=== PATIENT | female | born 1980 | race Caucasian/White ===

== ENCOUNTER 2018-01-20 17:47 | Emergency (ER) | payer SELFPAY ==
--- NOTE | 2018-01-20 17:57 | ER Report ---
History and Physical Time Seen By MD: 17:57 HPI/ROS CHIEF COMPLAINT: possible urinary tract infection or yeast infection HISTORY OF PRESENT ILLNESS: This is a 37 year old female. She is having difficulty with urination, progressing over several days. Some pain in the right flank extending around the side. She has had kidneystones in the past, but does not feel like that yet. She is having some urinary urgency and frequency, but no real pain when urinating. No fevers or chills. No shortness of breath or cough. Normal bowels. Allergies: Coded Allergies: No Known Drug Allergies (Unverified , 01/20/18) Home Meds Active Scripts Promethazine Hcl (PROMETHAZINE HCL) 25 Mg Tablet, 25 MG PO Q8H Y for NAUSEA/ VOMITING, #20 TAB 0 Refills Prov:ANTONI GONZALEZ MD 01/20/18 Amoxicillin (AMOXICILLIN) 500 Mg Capsule, 1 CAP PO Q8H, #15 CAPSULE 0 Refills Prov:ANTONI GONZALEZ MD 01/20/18 Reviewed Nurses Notes: Yes Constitutional Vital Sign - Last 24 Hours 01/20/18 17:57 Temp 98.1 Pulse 104 Resp 18 B/P (MAP) 157/94 Pulse Ox 96 O2 Delivery Room Air Physical Exam General Appearance: Alert, no acute distress. Respiratory: Chest is non tender, lungs are clear to auscultation. Cardiac: regular rate and rhythm Gastrointestinal: Abdomen is soft, tender in right side, mainly lower. Right CVA tenderness. Musculoskeletal: Extremities have full range of motion. No pain over spine area. Skin: No rashes or lesions. DIFFERENTIAL DIAGNOSIS: After history and physical exam differential diagnosis was considered for symptoms of urinary tract infection versus kidney stone. Medical Decision Making Data Points Laboratory Hematology Test 01/20/18 17:53 Urine Color Straw Urine Clarity Clear Urine pH 6.0 pH (4.8-9.5) Urine Specific [place] 1.010 Urine Protein Negative mg/dL (NEGATIVE) Urine Glucose (UA) Negative mg/dL (NEGATIVE) Urine Ketones Negative mg/dL (NEGATIVE) Urine Blood Moderate (NEGATIVE) Urine Nitrite Negative (NEGATIVE) Urine Bilirubin Negative (NEGATIVE) Urine Urobilinogen Negative mg/dL (0.2-1.9) Urine Leukocyte Esterase Small (NEGATIVE) Urine RBC 17 /HPF (0-2/HPF) Urine WBC 13 /HPF (0-5/HPF) Urine Squamous Epithelial Cells Many /LPF (</=FEW) Urine Transitional Epithelial Cells Few /LPF (NONE-FEW) Urine Bacteria Negative /HPF (NONE-FEW) Urine Mucus None /HPF (NONE-FEW) Chemistry Test 01/20/18 17:53 Urine Color Straw Urine Clarity Clear Urine pH 6.0 pH (4.8-9.5) Urine Specific [place] 1.010 Urine Protein Negative mg/dL (NEGATIVE) Urine Glucose (UA) Negative mg/dL (NEGATIVE) Urine Ketones Negative mg/dL (NEGATIVE) Urine Blood Moderate (NEGATIVE) Urine Nitrite Negative (NEGATIVE) Urine Bilirubin Negative (NEGATIVE) Urine Urobilinogen Negative mg/dL (0.2-1.9) Urine Leukocyte Esterase Small (NEGATIVE) Urine RBC 17 /HPF (0-2/HPF) Urine WBC 13 /HPF (0-5/HPF) Urine Squamous Epithelial Cells Many /LPF (</=FEW) Urine Transitional Epithelial Cells Few /LPF (NONE-FEW) Urine Bacteria Negative /HPF (NONE-FEW) Urine Mucus None /HPF (NONE-FEW) Urinalysis Test 01/20/18 17:53 Urine Color Straw Urine Clarity Clear Urine pH 6.0 pH (4.8-9.5) Urine Specific [place] 1.010 Urine Protein Negative mg/dL (NEGATIVE) Urine Glucose (UA) Negative mg/dL (NEGATIVE) Urine Ketones Negative mg/dL (NEGATIVE) Urine Blood Moderate (NEGATIVE) Urine Nitrite Negative (NEGATIVE) Urine Bilirubin Negative (NEGATIVE) Urine Urobilinogen Negative mg/dL (0.2-1.9) Urine Leukocyte Esterase Small (NEGATIVE) Urine RBC 17 /HPF (0-2/HPF) Urine WBC 13 /HPF (0-5/HPF) Urine Squamous Epithelial Cells Many /LPF (</=FEW) Urine Transitional Epithelial Cells Few /LPF (NONE-FEW) Urine Bacteria Negative /HPF (NONE-FEW) Urine Mucus None /HPF (NONE-FEW) ED Course/Re-evaluation ED Course Based on symptoms, started with just a urinalysis. This was positive, but could still represent infection versus kidney stone. I favor this being a stone at this time. We discussed further management and after discussing, we will not do imaging or blood work. She will use Tylenol and Ibuprofen for pain. Phenergan for nausea. And then will start Amoxicillin, urine culture and a dose of Diflucan to prevent yeast infection. She will return if not improving and we can do more of a workup at that time as needed. Decision to Disposition Date: Jan 20, 2018 Decision to Disposition Time: 19:00 Depart Departure Latest Vital Signs Vital Signs Date Time Temp Pulse Resp B/P (MAP) Pulse Ox O2 Delivery O2 Flow Rate FiO2 01/20/18 17:57 98.1 104 18 157/94 96 Room Air Impression: Primary Impression: Urinary tract infection Condition: Improved Disposition: HOME OR SELF-CARE New Scripts Promethazine Hcl (PROMETHAZINE HCL) 25 Mg Tablet 25 MG PO Q8H Y for NAUSEA/VOMITING, #20 TAB 0 Refills Prov: ANTONI GONZALEZ MD 01/20/18 Amoxicillin (AMOXICILLIN) 500 Mg Capsule 1 CAP PO Q8H, #15 CAPSULE 0 Refills Prov: ANTONI GONZALEZ MD 01/20/18 Patient Instructions: Urinary Tract Infection in Women (ED) Additional Instructions: Your urine shows changes that could represent urinary infection, but cannot rule out a kidney stone. Take Tylenol and Ibuprofen as needed for pain. If you have nausea/vomiting, take phenergan 25mg tablet every 6 hours as needed for nausea. Take the antibiotic Amoxicillin 500mg three times a day for 5 days. Urine culture is being done and should be available in the next 48 to 72 hours. Problem Qualifiers Primary Impression: Urinary tract infection Urinary tract infection type: acute cystitis Hematuria presence: with hematuria Qualified Codes: N30.01 - Acute cystitis with hematuria ANTONI GONZALEZ MD Jan 20, 2018 17:57
[2018-01-20 19:00] VITALS: BP 135/80
[2018-01-20] MEDS ORDERED: PROMETHAZINE HCL 25 MG TAB TH 2 TAB/BOTTLE PO ONE (19:00)
[2018-01-20] MEDS ORDERED: AMOXICILLIN 500 MG CAP PO ONE (19:00)
[2018-01-20] MEDS ORDERED: FLUCONAZOLE 150 MG TAB PO ONE (19:00)
[2018-01-20] MEDS ORDERED: PROM-110 PO (19:04)
[2018-01-20] MEDS ORDERED: AMOX-362 PO (19:04)
== END 2018-01-20 19:10 | disposition home or self-care (01) ==
LOC: ER 17:50
DX: N39.0 Urinary tract infection, site not specified (principal); B96.20 Unspecified Escherichia coli [E. coli] as the cause of diseases classified elsewhere
CPT/HCPCS: 81001; 87077; 87088; 87186; 99283

== ENCOUNTER → 2018-02-19 | Outpatient (CLI) | payer SELFPAY ==
[~2018-02-19] MED LIST: AMOX-362 PO; CLIN300C99 PO; HYDR-385 PO; PROM-110 PO; SULF-198 PO
== END ==
LOC: LAB 12:05
PROVIDERS: ATTEND Nurse Practitioner Primary Care
DX: L03.113 Cellulitis of right upper limb (principal)
CPT/HCPCS: 87070

== ENCOUNTER 2018-04-16 11:40 | Emergency (ER) | payer SELFPAY ==
--- NOTE | 2018-04-16 11:48 | ER Report ---
History and Physical Time Seen By MD: 11:47 Hx. of Stated Complaint: Fever, sore throat body aches HPI/ROS Patient is a 37-year-old female ambulatory to the emergency room has been ill 3 days stated she started having a scratchy throat body aches fever her son has similar symptoms chief complaint right now is a sore throat Remainder of the 14 system rev: Yes Allergies: Coded Allergies: No Known Drug Allergies (Unverified , 01/20/18) Home Meds Active Scripts Sulfamethoxazole/Trimet 800-160 Mg Tab (BACTRIM DS TABLET) 1 Each Tablet, 1 TAB PO BID for 10 Days, #20 TAB 0 Refills Prov:GORDO RAND DNP, [facility]- 02/19/18 Hydrocodone Bit/Acetaminophen (HYDROCODON-ACETAMINOPHEN 5-325) 1 Each Tablet, 1 EACH PO Q4-6H PRN for PAIN, #15 TAB 0 Refills Prov:GORDO RAND DNP, [facility] 02/19/18 Past Medical/Surgical History Migraine headaches, chronic pain Smoking Status: Current: Every Day Smoker Constitutional Vital Sign - Last 24 Hours 04/16/18 04/16/18 11:47 12:51 Temp 97.3 Pulse 91 97 Resp 24 B/P (MAP) 135/74 111/77 (88) Pulse Ox 97 95 O2 Delivery Room Air Room Air Physical Exam 37-year-old female alert oriented mild distress HEENT has normocephalic atraumatic tympanic membranes are non-reddened throat is erythematous noncoated no lymphadenopathy heart rate regular no murmurs rubs and gallops lungs clear to auscultation abdomen is soft moves all extremities Medical Decision Making Data Points Laboratory Hematology Test 04/16/18 11:57 Influenza Virus Type A (PCR) Negative (NEGATIVE) Influenza Virus Type B (PCR) Negative (NEGATIVE) Group A Streptococcus Screen Negative (NEGATIVE) Chemistry Test 04/16/18 11:57 Influenza Virus Type A (PCR) Negative (NEGATIVE) Influenza Virus Type B (PCR) Negative (NEGATIVE) Group A Streptococcus Screen Negative (NEGATIVE) ED Course/Re-evaluation ED Course Influenza swab and rapid strep are both negative by did talk to the patient this is a probable viral illness she sent home with symptomatic treatment with instructions to return to the emergency room if she becomes more ill or has any problems or concerns she was given the number for a primary care physician to follow-up with Re-evaluation No acute distress on it dismissal afebrile Decision to Disposition Date: Apr 16, 2018 Decision to Disposition Time: 12:52 Depart Departure Latest Vital Signs Vital Signs Date Time Temp Pulse Resp B/P (MAP) Pulse Ox O2 Delivery O2 Flow Rate FiO2 04/16/18 12:51 97 111/77 (88) 95 Room Air 04/16/18 11:47 97.3 24 Impression: Primary Impression: Viral syndrome Condition: Improved Disposition: HOME OR SELF-CARE Referrals: BALBIR RODRIGUEZ DO 1 Week Patient Instructions: Viral Syndrome (ED) ENRRIQUE FLANAGAN Apr 16, 2018 11:48
[2018-04-16 12:51] VITALS: BP 111/77
== END 2018-04-16 12:57 | disposition home or self-care (01) ==
LOC: ER 12:25
DX: B34.9 Viral infection, unspecified (principal)
CPT/HCPCS: 87081; 87502; 87880; 99282

== ENCOUNTER 2018-04-23 00:06 | Emergency (ER) | payer SELFPAY ==
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
[2018-04-23] MEDS ORDERED: ONDANSETRON 4 MG/2 ML VIAL IVP ONE (00:25)
[2018-04-23] MEDS ORDERED: IOPAMIDOL 76% 75 ML INFUS BTL 75 ML ONE (00:40)
[2018-04-23] MEDS ORDERED: NS(*) 0.9% 50 ML BAG 50 ML ONE (00:40)
[2018-04-23] MEDS: fentaNYL CITR 100 MCG/2 ML AMP IVP PRN ×2 (00:42→02:02)
[2018-04-23 01:00] VITALS: BP 125/73
[2018-04-23] MEDS ORDERED: fentaNYL CITR 100 MCG/2 ML AMP IVP PRN (01:55)
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
[2018-04-23] MEDS ORDERED: KETOROLAC 30 MG/ML VIAL IVP ONE (02:30)
[2018-04-23] MEDS ORDERED: LOR5/325 PO (02:38)
[2018-04-23] MEDS ORDERED: TIZA-128 PO (02:38)
[2018-04-23] MEDS ORDERED: ACET/HYDROC 5/325MG TH ER ONLY 2 TAB/BOTTLE PO ONE (02:45)
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
== END 2018-04-23 02:54 | disposition home or self-care (01) ==
LOC: SANE 00:18
DX: R51 Headache (principal); S09.90XA Unspecified injury of head, initial encounter; S10.93XA Contusion of unspecified part of neck, initial encounter; T71.9XXA Asphyxiation due to unspecified cause, initial encounter; Y04.8XXA Assault by other bodily force, initial encounter
CPT/HCPCS: 70450; 70498; 84703; 96374; 96375; 99284; J1885; J2405; J3010; J7050; Q9967

== ENCOUNTER 2018-08-24 15:24 | Emergency (ER) | payer MEDICAID ==
[~2018-08-24 15:24] MED LIST changes: +LOR5/325 PO; +TIZA-128 PO
--- NOTE | 2018-08-24 15:32 | ER Report ---
History and Physical Time Seen By MD: 15:31 HPI/ROS CHIEF COMPLAINT: sorethroat, ear ache, nasal congestion HISTORY OF PRESENT ILLNESS: Pt states that she started two days ago with nasal congestion, left ear pain, occasional cough, headache and bodyaches. Pt states that her 1 year old has similar symptoms. Pt did not get a flu shot. No n/v/d. Pt using tylenol and motrin for symptoms. REVIEW OF SYSTEMS: Constitutional: No fever, no chills. Eyes: No discharge. ENT: + sore throat. + left ear pain Cardiovascular: No chest pain, no palpitations. Respiratory: No cough, no shortness of breath. Gastrointestinal: No abdominal pain, no vomiting. Genitourinary: No hematuria. Musculoskeletal: No back pain. Skin: No rashes. Neurological: + headache. Allergies: Coded Allergies: No Known Drug Allergies (Unverified , 01/20/18) Home Meds Active Scripts Tizanidine Hcl (TIZANIDINE HCL) 4 Mg Tablet, 4 MG PO TID PRN for muscle spasm relief, #15 Prov:MARBINSRIRAM DO 04/23/18 Hydrocodone Bit/Acetaminophen (HYDROCODON-ACETAMINOPHEN 5-325) 1 Each Tablet, 1 EACH PO Q4-6H for PAIN, #12 TAKE ONE TABLET BY MOUTH EVERY 4-6 HOURS NEEDED FOR PAIN Prov:MARBINSRIRAM M DO 04/23/18 Sulfamethoxazole/Trimet 800-160 Mg Tab (BACTRIM DS TABLET) 1 Each Tablet, 1 TAB PO BID for 10 Days, #20 TAB 0 Refills Prov:GORDO RAND DNP, FNP-BC 02/19/18 Hydrocodone Bit/Acetaminophen (HYDROCODON-ACETAMINOPHEN 5-325) 1 Each Tablet, 1 EACH PO Q4-6H PRN for PAIN, #15 TAB 0 Refills Prov:GORDO RAND DNP, FNP-BC 02/19/18 Past Medical/Surgical History Pmhx: Pseudotumor cerebri Reviewed Nurses Notes: Yes Hx Smoking: Yes Smoking Status: Current: Every Day Smoker Hx Alcohol Use: No Constitutional Vital Sign - Last 24 Hours 08/24/18 15:35 Temp 97.9 Pulse 95 Resp 16 B/P (MAP) 146/88 Pulse Ox 93 O2 Delivery Room Air Physical Exam General Appearance: The patient is alert, has no immediate need for airway protection and no signs of toxicity. Eyes: Pupils equal and round no pallor or injection, EOMI ENT: + pharyngeal erythema but no exudates, Mucous membranes are moist, TM are nl b/l Respiratory: There are no retractions, lungs are clear to auscultation. Cardiovascular: Regular rate and rhythm. pulses are equal and symmetrical Gastrointestinal: Abdomen is soft and non tender, no masses, bowel sounds normal, no guarding, no rigidity or rebound Neurological: Cranial nerves II-XII grossly intact, no sensory or motor loss Skin: Warm and dry, no rashes. Musculoskeletal: Neck is supple non tender, no vertebral tenderness Extremities are nontender, non swollen and have full range of motion. DIFFERENTIAL DIAGNOSIS: After history and physical exam differential diagnosis was considered for influenza, viral uri, sinusitis, strep Medical Decision Making Data Points Laboratory Hematology Test 08/24/18 00:00 08/24/18 15:45 Influenza Virus Type A (PCR) Negative (NEGATIVE) Influenza Virus Type B (PCR) Negative (NEGATIVE) Group A Streptococcus (PCR) Negative (NEGATIVE) Urine HCG, Qualitative Negative (NEGATIVE) Chemistry Test 08/24/18 00:00 08/24/18 15:45 Influenza Virus Type A (PCR) Negative (NEGATIVE) Influenza Virus Type B (PCR) Negative (NEGATIVE) Group A Streptococcus (PCR) Negative (NEGATIVE) Urine HCG, Qualitative Negative (NEGATIVE) Urinalysis Test 08/24/18 15:45 Urine HCG, Qualitative Negative (NEGATIVE) ED Course/Re-evaluation ED Course check flu and strep 08/24/2018 4:17:45 pm PT states she got relief from her congestion and ear discomfort with the neosynephrine nasal spray. Still with headache. will give pt motrin. PT 08/24/2018 4:31:26 pm Pts strep and influenza are neg Decision to Disposition Date: Aug 24, 2018 Decision to Disposition Time: 16:31 Depart Departure Latest Vital Signs Vital Signs Date Time Temp Pulse Resp B/P (MAP) Pulse Ox O2 Delivery O2 Flow Rate FiO2 08/24/18 15:35 97.9 95 16 146/88 93 Room Air Impression: Primary Impression: Upper respiratory infection Condition: Improved Disposition: HOME OR SELF-CARE Patient Instructions: Eustachian Tube Dysfunction (GEN), Upper Respiratory Infection (ED) Additional Instructions: Your influenza and strep were negative. Motrin/tylenol as needed for bodyaches and headache. You may use the nasal spray that we supplied every 6 hours as needed for the next 2 days. Benadryl 25mg every 6 hours will also help with your congestion and blocked ear duct. Follow up as needed. Problem Qualifiers Primary Impression: Upper respiratory infection URI type: unspecified viral URI Qualified Codes: J06.9 - Acute upper respiratory infection, unspecified ALEXEI SNEED DO Aug 24, 2018 15:32
[2018-08-24] MEDS ORDERED: PHENYLEPHRINE 0.5% 15 ML BTL ONE (15:50)
[2018-08-24] MEDS ORDERED: IBUPROFEN 600 MG TAB PO ONE (16:20)
[2018-08-24 16:32] VITALS: BP 132/84
== END 2018-08-24 16:36 | disposition home or self-care (01) ==
LOC: ER 15:34
DX: J06.9 Acute upper respiratory infection, unspecified (principal)
CPT/HCPCS: 81025; 87502; 87653; 99283

== ENCOUNTER 2018-09-29 17:05 | Emergency (ER) | payer MEDICAID ==
--- NOTE | 2018-09-29 17:18 | ER Report ---
History and Physical Time Seen By MD: 17:18 Hx. of Stated Complaint: SICK FOR 3 DAYS WITH COUGH, CONGESTION AND FEVER HPI/ROS CHIEF COMPLAINT: Cough, congestion, fever HISTORY OF PRESENT ILLNESS: Patient is a 38 year old female presenting to the ED with complaints of cough, congestion, and fever. Started 3 days ago with nasal congestion. Then her left ear started to hurt. Yesterday in the morning patient had a fever. Highest fever was 101.3. Patient now has a cough with productive, yellow sputum. Patient complains of shortness of breath. Patient has also been nauseated with one episode of vomiting yesterday. Patient also has right upper quadrant pain for 1.5 weeks. States the pain is worse with eating. Lasts for approximately one hour. REVIEW OF SYSTEMS: Respiratory: See HPI Cardiovascular: No chest pain, no palpitations. Gastrointestinal: see HPI. Musculoskeletal: No back pain. Allergies: Coded Allergies: No Known Drug Allergies (Unverified , 01/20/18) Home Meds Active Scripts Pantoprazole Sodium (PANTOPRAZOLE SODIUM) 40 Mg Tablet.dr, 40 MG PO QDAY, #30 TAB.SR Prov:KIRSTEN WATSON [facility] 09/29/18 Prednisone (PREDNISONE) 20 Mg Tablet, 40 MG PO DAILY, #10 TAB Prov:KIRSTEN WATSON [employer] 09/29/18 Promethazine HCl/Codeine (Prometh-Codein 6.25-10 mg/5 ml) 5 Ml Syrup, 1 TSP PO QHS PRN for COUGH, #35 ML Prov:KIRSTEN WATSON [facility] 09/29/18 Amoxicillin/Pot Clav 875-125 Mg Tab (AUGMENTIN 875-125 TABLET) 1 Each Tablet, 1 TAB PO Q12H, #13 TAB Prov:KIRSTEN WATSON [facility] 09/29/18 Hydrocodone Bit/Acetaminophen (HYDROCODON-ACETAMINOPHEN 5-325) 1 Each Tablet, 1 EACH PO Q4-6H for PAIN, #12 TAKE ONE TABLET BY MOUTH EVERY 4-6 HOURS NEEDED FOR PAIN Prov:SRIRAM ZAZUETA DO 04/23/18 Discontinued Scripts Tizanidine Hcl (TIZANIDINE HCL) 4 Mg Tablet, 4 MG PO TID PRN for muscle spasm relief, #15 Prov:SRIRAM ZAZUETA DO 04/23/18 Sulfamethoxazole/Trimet 800-160 Mg Tab (BACTRIM DS TABLET) 1 Each Tablet, 1 TAB PO BID for 10 Days, #20 TAB 0 Refills Prov:GORDO RAND DNP, [employer] [facility] 02/19/18 Hydrocodone Bit/Acetaminophen (HYDROCODON-ACETAMINOPHEN 5-325) 1 Each Tablet, 1 EACH PO Q4-6H PRN for PAIN, #15 TAB 0 Refills Prov:GORDO RAND DNP, [facility]- 02/19/18 Past Medical/Surgical History Patient has a past medical history of kidney stones. Patient denies any surgeries. Reviewed Nurses Notes: Yes Hx Smoking: Yes Smoking Status: Current: Every Day Smoker Hx Alcohol Use: No Constitutional Vital Sign - Last 24 Hours 09/29/18 09/29/18 17:08 19:53 Temp 98.1 Pulse 102 85 Resp 20 16 B/P (MAP) 141/83 138/82 (100) Pulse Ox 96 93 O2 Delivery Room Air Room Air Physical Exam General Appearance: The patient is alert, has no immediate need for airway protection and no current signs of toxicity. Eyes: Pupils equal and round no injection. Ears: TMs were dull and bulging bilaterally. Nose: Canals erythemic with swollen turbinates. Respiratory: Chest is non tender, lungs are clear to auscultation. Cardiac: regular rate and rhythm Gastrointestinal: Abdomen is soft, no masses, bowel sounds normal. Right upper quadrant tenderness to palpitation noted Musculoskeletal: Neck: Neck is supple and non tender. Submandibular lym phadenopathy noted. Extremities have full range of motion and are non tender. Skin: No rashes or lesions. DIFFERENTIAL DIAGNOSIS: After history and physical exam differential diagnosis was considered for sinusitis, upper respiratory infection, gallstones, ulcer. Medical Decision Making Data Points Result Diagram: 09/29/18 1755 09/29/18 175 Laboratory Hematology Test 09/29/18 17:14 09/29/18 17:55 09/29/18 18:07 Influenza Virus Type A (PCR) Negative (NEGATIVE) Influenza Virus Type B (PCR) Negative (NEGATIVE) Red Blood Count 4.82 M/uL (4.17-5.56) Mean Corpuscular Volume 89.3 fL (80.0-96.0) Mean Corpuscular Hemoglobin 30.8 pg (26.0-33.0) Mean Corpuscular Hemoglobin Concent 34.5 g/dL (32.0-36.0) Red Cell Distribution Width 14.6 % (11.5-14.5) Mean Platelet Volume 9.7 fL (7.2-11.1) Neutrophils (%) (Auto) 60.3 % (39.4-72.5) Lymphocytes (%) (Auto) 27.3 % (17.6-49.6) Monocytes (%) (Auto) 9.0 % (4.1-12.4) Eosinophils (%) (Auto) 2.7 % (0.4-6.7) Basophils (%) (Auto) 0.7 % (0.3-1.4) Nucleated RBC Relative Count (auto) 0.0 /100WBC Neutrophils # (Auto) 3.8 K/uL (2.0-7.4) Lymphocytes # (Auto) 1.7 K/uL (1.3-3.6) Monocytes # (Auto) 0.6 K/uL (0.3-1.0) Eosinophils # (Auto) 0.2 K/uL (0.0-0.5) Basophils # (Auto) 0.0 K/uL (0.0-0.1) Nucleated RBC Absolute Count (auto) 0.00 K/uL Sodium Level 140 mmol/L (137-145) Potassium Level 3.5 mmol/L (3.5-5.0) Chloride Level 109 mmol/L (98-107) Carbon Dioxide Level 21 mmol/L (22-31) Blood Urea Nitrogen 9 mg/dl (7-18) Creatinine 0.80 mg/dl (0.52-1.04) Glomerular Filtration Rate Calc > 60.0 Random Glucose 114 mg/dl (75-110) Calcium Level 8.8 mg/dl (8.4-10.2) Total Bilirubin < 0.1 mg/dl (0.2-1.3) Aspartate Amino Transf (AST/SGOT) 27 U/L (0-35) Alanine Aminotransferase (ALT/SGPT) 18 U/L (0-56) Alkaline Phosphatase 61 U/L (0-126) Total Protein 7.1 g/dl (6.3-8.2) Albumin 4.2 g/dl (3.5-5.0) Amylase Level 86 U/L (0-110) Lipase 125 U/L (23-300) Helicobacter pylori IgG Antibody Negative (NEGATIVE) Urine Color Straw Urine Clarity Clear Urine pH 5.0 pH (4.8-9.5) Urine Specific Bentley 1.016 Urine Protein Negative mg/dL (NEGATIVE) Urine Glucose (UA) Negative mg/dL (NEGATIVE) Urine Ketones Negative mg/dL (NEGATIVE) Urine Blood Small (NEGATIVE) Urine Nitrite Negative (NEGATIVE) Urine Bilirubin Negative (NEGATIVE) Urine Urobilinogen Negative mg/dL (0.2-1.9) Urine Leukocyte Esterase Negative (NEGATIVE) Urine RBC 1 /HPF (0-2/HPF) Urine WBC <1 /HPF (0-5/HPF) Urine Squamous Epithelial Cells Many /LPF (</=FEW) Urine Bacteria Negative /HPF (NONE-FEW) Urine Mucus None /HPF (NONE-FEW) Chemistry Test 09/29/18 17:14 09/29/18 17:55 09/29/18 18:07 Influenza Virus Type A (PCR) Negative (NEGATIVE) Influenza Virus Type B (PCR) Negative (NEGATIVE) White Blood Count 6.3 k/uL (4.5-11.0) Red Blood Count 4.82 M/uL (4.17-5.56) Hemoglobin 14.9 g/dL (12.0-16.0) Hematocrit 43.0 % (34.0-47.0) Mean Corpuscular Volume 89.3 fL (80.0-96.0) Mean Corpuscular Hemoglobin 30.8 pg (26.0-33.0) Mean Corpuscular Hemoglobin Concent 34.5 g/dL (32.0-36.0) Red Cell Distribution Width 14.6 % (11.5-14.5) Platelet Count 286 K/uL (150-450) Mean Platelet Volume 9.7 fL (7.2-11.1) Neutrophils (%) (Auto) 60.3 % (39.4-72.5) Lymphocytes (%) (Auto) 27.3 % (17.6-49.6) Monocytes (%) (Auto) 9.0 % (4.1-12.4) Eosinophils (%) (Auto) 2.7 % (0.4-6.7) Basophils (%) (Auto) 0.7 % (0.3-1.4) Nucleated RBC Relative Count (auto) 0.0 /100WBC Neutrophils # (Auto) 3.8 K/uL (2.0-7.4) Lymphocytes # (Auto) 1.7 K/uL (1.3-3.6) Monocytes # (Auto) 0.6 K/uL (0.3-1.0) Eosinophils # (Auto) 0.2 K/uL (0.0-0.5) Basophils # (Auto) 0.0 K/uL (0.0-0.1) Nucleated RBC Absolute Count (auto) 0.00 K/uL Glomerular Filtration Rate Calc > 60.0 Calcium Level 8.8 mg/dl (8.4-10.2) Total Bilirubin < 0.1 mg/dl (0.2-1.3) Aspartate Amino Transf (AST/SGOT) 27 U/L (0-35) Alanine Aminotransferase (ALT/SGPT) 18 U/L (0-56) Alkaline Phosphatase 61 U/L (0-126) Total Protein 7.1 g/dl (6.3-8.2) Albumin 4.2 g/dl (3.5-5.0) Amylase Level 86 U/L (0-110) Lipase 125 U/L (23-300) Helicobacter pylori IgG Antibody Negative (NEGATIVE) Urine Color Straw Urine Clarity Clear Urine pH 5.0 pH (4.8-9.5) Urine Specific Bentley 1.016 Urine Protein Negative mg/dL (NEGATIVE) Urine Glucose (UA) Negative mg/dL (NEGATIVE) Urine Ketones Negative mg/dL (NEGATIVE) Urine Blood Small (NEGATIVE) Urine Nitrite Negative (NEGATIVE) Urine Bilirubin Negative (NEGATIVE) Urine Urobilinogen Negative mg/dL (0.2-1.9) Urine Leukocyte Esterase Negative (NEGATIVE) Urine RBC 1 /HPF (0-2/HPF) Urine WBC <1 /HPF (0-5/HPF) Urine Squamous Epithelial Cells Many /LPF (</=FEW) Urine Bacteria Negative /HPF (NONE-FEW) Urine Mucus None /HPF (NONE-FEW) Urinalysis Test 09/29/18 18:07 Urine Color Straw Urine Clarity Clear Urine pH 5.0 pH (4.8-9.5) Urine Specific Bentley 1.016 Urine Protein Negative mg/dL (NEGATIVE) Urine Glucose (UA) Negative mg/dL (NEGATIVE) Urine Ketones Negative mg/dL (NEGATIVE) Urine Blood Small (NEGATIVE) Urine Nitrite Negative (NEGATIVE) Urine Bilirubin Negative (NEGATIVE) Urine Urobilinogen Negative mg/dL (0.2-1.9) Urine Leukocyte Esterase Negative (NEGATIVE) Urine RBC 1 /HPF (0-2/HPF) Urine WBC <1 /HPF (0-5/HPF) Urine Squamous Epithelial Cells Many /LPF (</=FEW) Urine Bacteria Negative /HPF (NONE-FEW) Urine Mucus None /HPF (NONE-FEW) EKG/Imaging Imaging Exam type: CHEST PA LAT History: shortness of breath Comparison: None. Findings: Both lungs are well-expanded and clear. There is no focal consolidation, pleural effusion or pneumothorax. Heart size is normal. The osseous structures demonstrate a mild rightward scoliosis. IMPRESSION: 1. No acute cardiopulmonary disease. Report Dictated By: Yousuf Mariano MD at 09/29/2018 6:33 PM Report E-Signed By: Yousuf Mariano MD at 09/29/2018 6:34 PM EXAMINATION: Focused right upper quadrant ultrasound COMPARISON: None HISTORY: Right upper quadrant pain. Findings: Standard right upper quadrant abdominal ultrasound is performed. Pancreas: Visualized portions of the pancreas are unremarkable. Liver and portal vein: Questionable mild hepatomegaly. Liver is otherwise unremarkable. Main portal vein is patent. Gallbladder and biliary system: Contracted but otherwise unremarkable gallbladder. No stone or sludge. No wall thickening or pericholecystic fluid. This lies common bile duct is within normal limits. Visualized aorta and IVC: Negative. Kidneys: The right kidney measures 11.8 x 4.8 x 6.0 cm . No renal mass, stone, or hydronephrosis. Ascites: None. IMPRESSION: Possible mild hepatomegaly. Otherwise negative right upper quadrant ultrasound. Report Dictated By: Jose Olmstead MD at 09/29/2018 6:57 PM Report E-Signed By: Jose Olmstead MD at 09/29/2018 6:59 PM ED Course/Re-evaluation ED Course Patient was admitted to the room and placed in a bed. History and physical were completed. Differential diagnoses were considered. IV was placed and lab work drawn. Ultrasound of the gallbladder was done. Influenza testing done. Results were discussed with the patient. Patient placed on an antibiotic and steriod for the sinus infection. Patient placed on protonix and told to follow up with her PCP for right upper abdominal pain. Patient requested a cough syrup for cough at night. This prescription was given. Patient verbalized discharge instructions. Patient discharged to home. Decision to Disposition Date: Sep 29, 2018 Decision to Disposition Time: 19:39 Depart Departure Latest Vital Signs Vital Signs Date Time Temp Pulse Resp B/P (MAP) Pulse Ox O2 Delivery O2 Flow Rate FiO2 09/29/18 19:53 85 16 138/82 (100) 93 Room Air 09/29/18 17:08 98.1 Impression: Primary Impression: Acute bacterial sinusitis Additional Impression: Right upper quadrant abdominal pain Condition: Improved Disposition: HOME OR SELF-CARE New Scripts Pantoprazole Sodium (PANTOPRAZOLE SODIUM) 40 Mg Tablet.dr 40 MG PO QDAY, #30 TAB.SR Prov: KIRSTEN WATSON 09/29/18 Prednisone (PREDNISONE) 20 Mg Tablet 40 MG PO DAILY, #10 TAB Prov: KIRSTEN WATSON 09/29/18 Promethazine HCl/Codeine (Prometh-Codein 6.25-10 mg/5 ml) 5 Ml Syrup 1 TSP PO QHS PRN for COUGH, #35 ML Prov: KIRSTEN WATSON 09/29/18 Amoxicillin/Pot Clav 875-125 Mg Tab (AUGMENTIN 875-125 TABLET) 1 Each Tablet 1 TAB PO Q12H, #13 TAB Prov: KIRSTEN WATSON 09/29/18 Patient Instructions: Abdominal Pain (ED), Sinusitis (ED) Additional Instructions: Rest and increase fluids. Humidifier for your bedroom Keep doing sinus rinses. Take the medications as directed. Follow up with your PCP for the right upper abdominal pain. Take probiotics or eat yogurt while on the antibiotics. Problem Qualifiers KIRSTEN WATSON Sep 29, 2018 17:18
[2018-09-29] MEDS ORDERED: NS(*) 0.9% 1000 ML BAG 1,000 ML IV ONE (17:35)
[2018-09-29] MEDS ORDERED: KETOROLAC 15 MG/ML VIAL IVP ONE (17:45)
[2018-09-29 18:19] LABS: PLATELET COUNT, AUTOMATED 286 K/uL (150-450)
--- NOTE | 2018-09-29 18:38 | RADIOLOGY IMAGING REPORT ---
FACILITY: [facility] [place] PATIENT NAME: Paty Farias : 1980 MR: [id number] V: [id number] EXAM DATE: ORDERING PHYSICIAN: KIRSTEN WATSON TECHNOLOGIST: Location: [facility] Patient: Paty Farias : 1980 Visit/Account:[id number] Date of Sevice: 09/29/2018 Exam type: CHEST PA LAT History: shortness of breath Comparison: None. Findings: Both lungs are well-expanded and clear. There is no focal consolidation, pleural effusion or pneumot horax. Heart size is normal. The osseous structures demonstrate a mild rightward scoliosis. IMPRESSION: 1. No acute cardiopulmonary disease. Report Dictated By: Yousuf Mariano MD at 09/29/2018 6:33 PM Report E-Signed By: Yousuf Mariano MD at 09/29/2018 6:34 PM WSN:[id number]
--- NOTE | 2018-09-29 19:04 | RADIOLOGY IMAGING REPORT ---
[facility] PATIENT NAME: Paty Farias : 1980 MR: [id number] V: [id number] EXAM DATE: ORDERING PHYSICIAN: KIRSTEN WATSON TECHNOLOGIST: Location: [facility] [place] Patient: Paty Farias : 1980 Visit/Account:[id number] Date of Sevice: 09/29/2018 EXAMINATION: Focused right upper quadrant ultrasound COMPARISON: None HISTORY: Right upper quadrant pain. Findings: Standard right upper quadrant abdominal ultrasound is performed. Pancreas: Visualized portions of the pancreas are unremarkable. Liver and portal vein: Questionable mild hepatomegaly. Liver is otherwise unremarkable. Main portal v ein is patent. Gallbladder and biliary system: Contracted but otherwise unremarkable gallbladder. No stone or sludge . No wall thickening or pericholecystic fluid. This lies common bile duct is within normal limits. Visualized aorta and IVC: Negative. Kidneys: The right kidney measures 11.8 x 4.8 x 6.0 cm . No renal mass, stone, or hydronephrosis. Ascites: None. IMPRESSION: Possible mild hepatomegaly. Otherwise negative right upper quadrant ultrasound. Report Dictated By: Jose Olmstead MD at 09/29/2018 6:57 PM Report E-Signed By: Jose Olmstead MD at 09/29/2018 6:59 PM WSN:[id number]
[2018-09-29] MEDS ORDERED: PROMETH/COD SYRP 6.25-10MG/5ML PO ONE (19:40)
[2018-09-29] MEDS ORDERED: AMOX/CLAV 875 MG TAB PO ONE (19:40)
[2018-09-29] MEDS ORDERED: PROM5SYR PO (19:42)
[2018-09-29] MEDS ORDERED: PANT40TA65 PO (19:42)
[2018-09-29] MEDS ORDERED: PRED20TA6 PO (19:42)
[2018-09-29] MEDS ORDERED: AMOX-559 PO (19:42)
[2018-09-29 19:53] VITALS: BP 138/82
== END 2018-09-29 19:55 | disposition home or self-care (01) ==
LOC: ER 17:08
DX: J01.90 Acute sinusitis, unspecified (principal); R10.11 Right upper quadrant pain
CPT/HCPCS: 71046; 76705; 81001; 82150; 83690; 85025; 86677; 87502; 96361; 96374; 99284; J1885; J7030; 82040; 82247; 82310; 82374; 82435; 82565; 82947; 84075; 84132; 84155; 84295; 84450; 84460; 84520

== ENCOUNTER 2018-11-18 11:20 | Emergency (ER) | payer MEDICAID ==
[~2018-11-18 11:20] MED LIST changes: +AMOX-559 PO; +PANT40TA65 PO; +PRED20TA6 PO; +PROM5SYR PO
[2018-11-18] MEDS ORDERED: NS(*) 0.9% 1000 ML BAG 1,000 ML IV ONE (11:31)
--- NOTE | 2018-11-18 11:31 | ER Report ---
History and Physical Time Seen By MD: 11:31 Hx. of Stated Complaint: SEVERE RIGHT SIDED ABDOMINAL PAIN FOR 4 DAYS. "UNSRUE IF I NEED TO PUKE OR POOP". GAINED 12LBS IN 2 MONTHS FOR NO KNOWN REASON HPI/ROS CHIEF COMPLAINT: Abdominal pain HISTORY OF PRESENT ILLNESS: 38-year-old female patient presents to emergency room with complaint of abdominal pain. Patient states this been going on for the past 4 days. Patient states that she does have a history of gallbladder disease, she was supposed to have her gallbladder taken out in the past, however she never followed up to have that done. Patient states the pain started 4 days ago, she says that eating and drinking seem to make it worse. She tried not eating and is coiled clear diet. She states that she then became very nauseated, started having vomiting. She states that that time she did try to eat thinking that may help. However it did not. Patient states pain is significantly worse today. She says that the pain is more in the epigastric region and radiates more to the left than the right. Patient states she is not taking any medication for this. She states she's not had any improvement in her symptoms over the last several days. REVIEW OF SYSTEMS: Respiratory: No cough, no dyspnea. Cardiovascular: No chest pain, no palpitations. Gastrointestinal: As noted above Musculoskeletal: No back pain. Allergies: Coded Allergies: No Known Drug Allergies (Unverified , 11/18/18) Home Meds Active Scripts Ondansetron 4 Mg Odt (ONDANSETRON 4 MG ODT) 4 Mg Tab.rapdis, 4 MG PO Q6H PRN for NAUSEA/VOMITING, #20 TAB Prov:KIRSTEN WATSON 11/18/18 Ketorolac Tromethamine (KETOROLAC TROMETHAMINE) 10 Mg Tab, 10 MG PO Q6H, #20 TAB Prov:KIRSTEN WATSON 11/18/18 Hydrocodone Bit/Acetaminophen (HYDROCODON-ACETAMINOPHEN 5-325) 1 Each Tablet, 1 EACH PO Q4-6H PRN for PAIN, #10 TAB Prov:KIRSTEN WATSON 11/18/18 Discontinued Scripts Pantoprazole Sodium (PANTOPRAZOLE SODIUM) 40 Mg Tablet.dr, 40 MG PO QDAY, #30 TAB.SR Prov:KIRSTEN WATSON 09/29/18 Prednisone (PREDNISONE) 20 Mg Tablet, 40 MG PO DAILY, #10 TAB Prov:KIRSTEN WATSONP 09/29/18 Promethazine HCl/Codeine (Prometh-Codein 6.25-10 mg/5 ml) 5 Ml Syrup, 1 TSP PO QHS PRN for COUGH, #35 ML Prov:KIRSTEN WATSON [employer] 09/29/18 Amoxicillin/Pot Clav 875-125 Mg Tab (AUGMENTIN 875-125 TABLET) 1 Each Tablet, 1 TAB PO Q12H, #13 TAB Prov:KIRSTEN WATSON [employer] 09/29/18 Hydrocodone Bit/Acetaminophen (HYDROCODON-ACETAMINOPHEN 5-325) 1 Each Tablet, 1 EACH PO Q4-6H for PAIN, #12 TAKE ONE TABLET BY MOUTH EVERY 4-6 HOURS NEEDED FOR PAIN Prov:SRIRAM ZAZUETA DO 04/23/18 Past Medical/Surgical History Patient has a past medical history of pseudotumor is, kidney stones. Patient has a surgical history of section 5. Reviewed Nurses Notes: Yes Hx Smoking: Yes Smoking Status: Current: Every Day Smoker Hx Alcohol Use: No Constitutional Vital Sign - Last 24 Hours 11/18/18 11/18/18 11/18/18 11/18/18 11:23 11:30 12:30 13:00 Temp 97.6 Pulse 112 112 89 81 Resp 20 B/P (MAP) 156/108 141/91 (108) 202/190 (194) 197/160 (172) Pulse Ox 96 98 98 O2 Delivery Room Air 11/18/18 14:00 Pulse 71 B/P (MAP) 117/85 (96) Pulse Ox 96 Physical Exam General Appearance: The patient is alert, has no immediate need for airway protection and no current signs of toxicity. Respiratory: Chest is non tender, lungs are clear to auscultation. Cardiac: regular rate and rhythm Gastrointestinal: Abdomen is soft and tender in the epigastric region, no masses, bowel sounds normal. Musculoskeletal: Neck: Neck is supple and non tender. Extremities have full range of motion and are non tender. Skin: No rashes or lesions. DIFFERENTIAL DIAGNOSIS: After history and physical exam differential diagnosis was considered for abdominal pain including but not limited to appendicitis, cholecystitis, gastritis and urinary tract infection. Medical Decision Making Data Points Result Diagram: 11/18/18 1130 11/18/18 1130 Laboratory Hematology Test 11/18/18 11:22 11/18/18 11:30 Urine Color Yellow Urine Clarity Slightly-cloudy Urine pH 6.0 pH (4.8-9.5) Urine Specific Bastian 1.010 Urine Protein 30 mg/dL (NEGATIVE) Urine Glucose (UA) Negative mg/dL (NEGATIVE) Urine Ketones Negative mg/dL (NEGATIVE) Urine Blood Large (NEGATIVE) Urine Nitrite Negative (NEGATIVE) Urine Bilirubin Negative (NEGATIVE) Urine Urobilinogen Negative mg/dL (0.2-1.9) Urine Leukocyte Esterase Negative (NEGATIVE) Urine RBC 83 /HPF (0-2/HPF) Urine WBC 2 /HPF (0-5/HPF) Urine Squamous Epithelial Cells Many /LPF (</=FEW) Urine Bacteria Few /HPF (NONE-FEW) Urine Mucus None /HPF (NONE-FEW) Red Blood Count 4.92 M/uL (4.17-5.56) Mean Corpuscular Volume 90.1 fL (80.0-96.0) Mean Corpuscular Hemoglobin 30.9 pg (26.0-33.0) Mean Corpuscular Hemoglobin Concent 34.3 g/dL (32.0-36.0) Red Cell Distribution Width 12.6 % (11.5-14.5) Mean Platelet Volume 9.6 fL (7.2-11.1) Neutrophils (%) (Auto) 68.1 % (39.4-72.5) Lymphocytes (%) (Auto) 24.5 % (17.6-49.6) Monocytes (%) (Auto) 5.3 % (4.1-12.4) Eosinophils (%) (Auto) 1.7 % (0.4-6.7) Basophils (%) (Auto) 0.4 % (0.3-1.4) Nucleated RBC Relative Count (auto) 0.0 /100WBC Neutrophils # (Auto) 6.6 K/uL (2.0-7.4) Lymphocytes # (Auto) 2.4 K/uL (1.3-3.6) Monocytes # (Auto) 0.5 K/uL (0.3-1.0) Eosinophils # (Auto) 0.2 K/uL (0.0-0.5) Basophils # (Auto) 0.0 K/uL (0.0-0.1) Nucleated RBC Absolute Count (auto) 0.00 K/uL Sodium Level 141 mmol/L (137-145) Potassium Level 3.8 mmol/L (3.5-5.0) Chloride Level 107 mmol/L (98-107) Carbon Dioxide Level 23 mmol/L (22-31) Blood Urea Nitrogen 12 mg/dl (7-18) Creatinine 0.70 mg/dl (0.52-1.04) Glomerular Filtration Rate Calc > 60.0 Random Glucose 85 mg/dl (75-110) Calcium Level 9.6 mg/dl (8.4-10.2) Total Bilirubin 0.4 mg/dl (0.2-1.3) Aspartate Amino Transf (AST/SGOT) 24 U/L (0-35) Alanine Aminotransferase (ALT/SGPT) 19 U/L (0-56) Alkaline Phosphatase 47 U/L (0-126) C-Reactive Protein < 0.5 mg/dl (<1.0) Total Protein 7.7 g/dl (6.3-8.2) Albumin 4.6 g/dl (3.5-5.0) Amylase Level 80 U/L (0-110) Lipase 71 U/L (23-300) Human Chorionic Gonadotropin, Qual Negative (NEGATIVE) Chemistry Test 11/18/18 11:22 11/18/18 11:30 Urine Color Yellow Urine Clarity Slightly-cloudy Urine pH 6.0 pH (4.8-9.5) Urine Specific Bastian 1.010 Urine Protein 30 mg/dL (NEGATIVE) Urine Glucose (UA) Negative mg/dL (NEGATIVE) Urine Ketones Negative mg/dL (NEGATIVE) Urine Blood Large (NEGATIVE) Urine Nitrite Negative (NEGATIVE) Urine Bilirubin Negative (NEGATIVE) Urine Urobilinogen Negative mg/dL (0.2-1.9) Urine Leukocyte Esterase Negative (NEGATIVE) Urine RBC 83 /HPF (0-2/HPF) Urine WBC 2 /HPF (0-5/HPF) Urine Squamous Epithelial Cells Many /LPF (</=FEW) Urine Bacteria Few /HPF (NONE-FEW) Urine Mucus None /HPF (NONE-FEW) White Blood Count 9.6 k/uL (4.5-11.0) Red Blood Count 4.92 M/uL (4.17-5.56) Hemoglobin 15.2 g/dL (12.0-16.0) Hematocrit 44.3 % (34.0-47.0) Mean Corpuscular Volume 90.1 fL (80.0-96.0) Mean Corpuscular Hemoglobin 30.9 pg (26.0-33.0) Mean Corpuscular Hemoglobin Concent 34.3 g/dL (32.0-36.0) Red Cell Distribution Width 12.6 % (11.5-14.5) Platelet Count 288 K/uL (150-450) Mean Platelet Volume 9.6 fL (7.2-11.1) Neutrophils (%) (Auto) 68.1 % (39.4-72.5) Lymphocytes (%) (Auto) 24.5 % (17.6-49.6) Monocytes (%) (Auto) 5.3 % (4.1-12.4) Eosinophils (%) (Auto) 1.7 % (0.4-6.7) Basophils (%) (Auto) 0.4 % (0.3-1.4) Nucleated RBC Relative Count (auto) 0.0 /100WBC Neutrophils # (Auto) 6.6 K/uL (2.0-7.4) Lymphocytes # (Auto) 2.4 K/uL (1.3-3.6) Monocytes # (Auto) 0.5 K/uL (0.3-1.0) Eosinophils # (Auto) 0.2 K/uL (0.0-0.5) Basophils # (Auto) 0.0 K/uL (0.0-0.1) Nucleated RBC Absolute Count (auto) 0.00 K/uL Glomerular Filtration Rate Calc > 60.0 Calcium Level 9.6 mg/dl (8.4-10.2) Total Bilirubin 0.4 mg/dl (0.2-1.3) Aspartate Amino Transf (AST/SGOT) 24 U/L (0-35) Alanine Aminotransferase (ALT/SGPT) 19 U/L (0-56) Alkaline Phosphatase 47 U/L (0-126) C-Reactive Protein < 0.5 mg/dl (<1.0) Total Protein 7.7 g/dl (6.3-8.2) Albumin 4.6 g/dl (3.5-5.0) Amylase Level 80 U/L (0-110) Lipase 71 U/L (23-300) Human Chorionic Gonadotropin, Qual Negative (NEGATIVE) Urinalysis Test 11/18/18 11:22 Urine Color Yellow Urine Clarity Slightly-cloudy Urine pH 6.0 pH (4.8-9.5) Urine Specific Bastian 1.010 Urine Protein 30 mg/dL (NEGATIVE) Urine Glucose (UA) Negative mg/dL (NEGATIVE) Urine Ketones Negative mg/dL (NEGATIVE) Urine Blood Large (NEGATIVE) Urine Nitrite Negative (NEGATIVE) Urine Bilirubin Negative (NEGATIVE) Urine Urobilinogen Negative mg/dL (0.2-1.9) Urine Leukocyte Esterase Negative (NEGATIVE) Urine RBC 83 /HPF (0-2/HPF) Urine WBC 2 /HPF (0-5/HPF) Urine Squamous Epithelial Cells Many /LPF (</=FEW) Urine Bacteria Few /HPF (NONE-FEW) Urine Mucus None /HPF (NONE-FEW) EKG/Imaging Imaging EXAMINATION: CT abdomen with IV contrast CT pelvis with IV contrast HISTORY: Abdominal pain. Nausea, diarrhea, and vomiting for 4 days. COMPARISON: None. TECHNIQUE: Axial images were taken through the abdomen and pelvis with intravenous contrast. Sagittal and coronal reformatted images are also submitted. CONTRAST: 75 mL of IV Isovue-370 One of the following dose optimization techniques was utilized in the performance of this exam: Automated exposure control; adjustment of the mA and/or kV according to the patient's size; or use of an iterative reconstruction technique. Specific details can be referenced in the facility's radiology CT exam operational policy. FINDINGS: Liver/biliary: Negative. Pancreas: Negative. Spleen: Negative. Adrenal glands: Negative. Kidneys: A 3 mm nonobstructive calculus in the right kidney. No hydronephrosis. Pelvic structures: The uterus is retroverted. Bowel: The bowel is normal caliber without obvious focal wall thickening. The appendix is normal. Peritoneum/retroperitoneum/mesenteries: Trace free fluid in the pelvis, physiologic in volume. No intraperitoneal free air. Vessels: Negative. Musculoskeletal/body wall: Negative. Lymph node assessment: Negative. Lower chest: Negative. IMPRESSION: There is trace free fluid in the pelvis, physiologic in volume. A 3 mm nonobstructive calculus in the right kidney. No hydronephrosis. Report Dictated By: Dejuan Kelly MD at 11/18/2018 1:09 PM Report E-Signed By: Dejuan Kelly MD at 11/18/2018 1:18 PM ED Course/Re-evaluation ED Course Patient was admitted to an exam room, history and physical were obtained. Differential diagnoses were considered. On examination lungs are clear, heart is regular, abdomen soft and tender in the upper quadrants bilaterally. An IV was started, a CBC, CMP, urinalysis were obtained. The lab results were negative. I did obtain a hCG as well which was also negative. Patient received a liter of normal saline. A CT scan of abdomen and pelvis was done which showed no acute findings. I discussed the results with the patient. I'm unsure as to the underlying cause of her pain. We will go ahead and prescribe her symptoms by pain medication, Toradol and Zofran. She is follow-up with her primary care provider in the next week. She is return to emergency room if condition worsens. She is to increase fluid intake, get plenty of rest. Patient verbalized understanding and agreement with plan. Decision to Disposition Date: November 18, 2018 Decision to Disposition Time: 14:08 Depart Departure Latest Vital Signs Vital Signs Date Time Temp Pulse Resp B/P (MAP) Pulse Ox O2 Delivery O2 Flow Rate FiO2 11/18/18 14:00 71 117/85 (96) 96 11/18/18 11:23 97.6 20 Room Air Impression: Primary Impression: Abdominal pain Condition: Improved Disposition: HOME OR SELF-CARE New Scripts Ondansetron 4 Mg Odt (ONDANSETRON 4 MG ODT) 4 Mg Tab.rapdis 4 MG PO Q6H PRN for NAUSEA/VOMITING, #20 TAB Prov: KIRSTEN WATSON 11/18/18 Ketorolac Tromethamine (KETOROLAC TROMETHAMINE) 10 Mg Tab 10 MG PO Q6H, #20 TAB Prov: KIRSTEN WATSON 11/18/18 Hydrocodone Bit/Acetaminophen (HYDROCODON-ACETAMINOPHEN 5-325) 1 Each Tablet 1 EACH PO Q4-6H PRN for PAIN, #10 TAB Prov: KIRSTEN WATSON 11/18/18 Patient Instructions: Abdominal Pain (ED) Additional Instructions: Increase fluid intake. Get plenty of rest. Follow up with your primary care provider in the next week. Return to the ER if condition worsens. Limit activity by pain. Problem Qualifiers Primary Impression: Abdominal pain Abdominal location: generalized Qualified Codes: R10.84 - Generalized abdominal pain KIRSTEN WATSON November 18, 2018 11:31
[2018-11-18] MEDS ORDERED: MORPHINE 4 MG/ML SDV IVP ONE (11:40)
[2018-11-18] MEDS ORDERED: ONDANSETRON 4 MG/2 ML VIAL IVP ONE (11:40)
[2018-11-18 11:44] LABS: PLATELET COUNT, AUTOMATED 288 K/uL (150-450)
[2018-11-18] MEDS ORDERED: IOPAMIDOL 76% 100 ML INFUS BTL 100 ML ONE (11:49)
[2018-11-18] MEDS ORDERED: KETOROLAC 15 MG/ML VIAL IVP ONE (13:15)
--- NOTE | 2018-11-18 13:21 | RADIOLOGY IMAGING REPORT ---
FACILITY: [facility] [place] PATIENT NAME: Paty Farias : 1980 MR: [id number] V: [id number] EXAM DATE: [id number] ORDERING PHYSICIAN: KIRSTEN WATSON TECHNOLOGIST: [place] [facility] [place] Paty Farias : 1980 Visit/Account:[id number] Date of Sevice: 11/18/2018 EXAMINATION: CT abdomen with IV contrast CT pelvis with IV contrast HISTORY: Abdominal pain. Nausea, diarrhea, and vomiting for 4 days. COMPARISON: None. TECHNIQUE: Axial images were taken through the abdomen and pelvis with intravenous contrast. Sagitt al and coronal reformatted images are also submitted. CONTRAST: 75 mL of IV Isovue-370 One of the following dose optimization techniques was utilized in the performance of this exam: Autom ated exposure control; adjustment of the mA and/or kV according to the patient's size; or use of an i terative reconstruction technique. Specific details can be referenced in the facility's radiology C T exam operational policy. FINDINGS: Liver/biliary: Negative. Pancreas: Negative. Spleen: Negative. Adrenal glands: Negative. Kidneys: A 3 mm nonobstructive calculus in the right kidney. No hydronephrosis. Pelvic structures: The uterus is retroverted. Bowel: The bowel is normal caliber without obvious focal wall thickening. The appendix is normal. Peritoneum/retroperitoneum/mesenteries: Trace free fluid in the pelvis, physiologic in volume. No int raperitoneal free air. Vessels: Negative. Musculoskeletal/body wall: Negative. Lymph node assessment: Negative. Lower chest: Negative. IMPRESSION: There is trace free fluid in the pelvis, physiologic in volume. A 3 mm nonobstructive calculus in the right kidney. No hydronephrosis. Report Dictated By: Dejuan Kelly MD at 11/18/2018 1:09 PM Report E-Signed By: Dejuan Kelly MD at 11/18/2018 1:18 PM [id number]
[2018-11-18 14:00] VITALS: BP 117/85
[2018-11-18] MEDS ORDERED: KET10 PO (14:09)
[2018-11-18] MEDS ORDERED: HYDR-385 PO (14:09)
[2018-11-18] MEDS ORDERED: ONDA4TAB9 PO (14:09)
== END 2018-11-18 14:16 | disposition home or self-care (01) ==
LOC: ER 11:39
DX: R10.84 Generalized abdominal pain (principal)
CPT/HCPCS: 74177; 81001; 82150; 83690; 84703; 85025; 86140; 96361; 96374; 96375; 99284; J1885; J2270; J2405; J7030; Q9967; 82040; 82247; 82310; 82374; 82435; 82565; 82947; 84075; 84132; 84155; 84295; 84450; 84460; 84520

== ENCOUNTER → 2019-02-13 | Outpatient (REF) | payer MEDICAID ==
[~2019-02-13] MED LIST changes: +KET10 PO; +ONDA4TAB9 PO
== END ==
LOC: ZZSENDIN 15:57
PROVIDERS: ATTEND Family Medicine
DX: N91.2 Amenorrhea, unspecified (principal)

== ENCOUNTER → 2019-02-13 | Outpatient (REF) | payer MEDICAID | LOC: ZZSENDIN 15:58 | PROVIDERS: ATTEND Family Medicine | DX: Z20.2 Contact with and (suspected) exposure to infections with a predominantly sexual mode of transmission (principal) | CPT/HCPCS: 84702; 87491; 87591 ==